=== PATIENT | female | born 1955 | race Caucasian/White ===

== ENCOUNTER 2018-09-15 08:53 | Outpatient (CLI) | payer OTHER | END 2018-09-15 09:08 | disposition home or self-care (01) | LOC: SONOGRAMA 08:53 | DX: R10.84 Generalized abdominal pain (principal) ==

== ENCOUNTER → 2022-01-16 | Outpatient (CLI) | payer OTHER | END | disposition home or self-care (01) | LOC: SONOGRAMA 08:28 | DX: R10.84 Generalized abdominal pain (principal) ==

== ENCOUNTER → 2023-11-05 13:25 | Outpatient (CLI) | payer OTHER | END | disposition home or self-care (01) | LOC: NUCLEAR 13:15 | PROVIDERS: ATTEND Internal Medicine Sports Medicine | DX: M81.0 Age-related osteoporosis without current pathological fracture (principal) ==